=== PATIENT | female | born 1965 | race Two or more races ===

== ENCOUNTER → 2017-09-12 | Outpatient (REF) | payer MEDICARE, MEDICAID | LOC: M LAB REF 16:28 | DX: L97.522 Non-pressure chronic ulcer of other part of left foot with fat layer exposed (principal) | CPT/HCPCS: 87070; 87077; 87186 ==

== ENCOUNTER 2021-06-25 12:36 | Outpatient (CLI) | payer MEDICARE, MEDICAID ==
[~2021-06-25] VITALS: Ht 160 cm; Wt 51.2 kg
[~2021-06-25 12:36] MED LIST: ZOLEDRONIC ACID 5 MG in IV 1 EA IV ONE
[2021-06-25] MEDS ORDERED: ZOLEDRONIC ACID 5 MG in IV 1 EA IV ONE (13:00)
[2021-06-25] MEDS ORDERED: KLON0.5T PO (13:46)
[2021-06-25] MEDS ORDERED: FERR325T3 PO (13:46)
[2021-06-25] MEDS ORDERED: KEPP1TAB PO (13:46)
[2021-06-25] MEDS ORDERED: CLAR10CA3 PO (13:46)
[2021-06-25] MEDS ORDERED: KLON2TAB PO (13:46)
[2021-06-25] MEDS ORDERED: COLE1TA PO (13:46)
[2021-06-25] MEDS ORDERED: TOPA200T7 PO (13:46)
== END 2021-06-25 13:40 | disposition home or self-care (01) ==
LOC: M INFU 12:36
PROVIDERS: ATTEND Internal Medicine Endocrinology, Diabetes & Metabolism
DX: M81.0 Age-related osteoporosis without current pathological fracture (principal); Z88.0 Allergy status to penicillin
CPT/HCPCS: 96365; J3489

== ENCOUNTER 2022-06-29 15:50 | Outpatient (CLI) | payer MEDICARE, MEDICAID ==
[~2022-06-29 15:50] MED LIST changes: +CLAR10CA3 PO; +COLE1TA PO; +FERR325T3 PO; +KEPP1TAB PO; +KLON0.5T PO; +KLON2TAB PO; +TOPA200T7 PO
[2022-06-29] MEDS ORDERED: ZOLEDRONIC ACID 5 MG in IV 1 EA IV ONE (16:00)
== END 2022-06-29 16:45 | disposition home or self-care (01) ==
LOC: M INFU 15:50
PROVIDERS: ATTEND Internal Medicine Endocrinology, Diabetes & Metabolism
DX: M81.0 Age-related osteoporosis without current pathological fracture (principal); Z88.0 Allergy status to penicillin
CPT/HCPCS: 96365; J3489